=== PATIENT | male | born 1940 | race African-American/Black ===

== ENCOUNTER 2023-12-05 22:01 | Inpatient (IN) | payer MEDICARE ==
[2023-12-05 22:53] LABS: #Basophils 0.04 10x3/uL (0.0-0.2); %Basophils 0.7 % (0.0-1.0); %Eosinophils 1.2 % (0.0-10.0); %Lymphocytes 38.6 % (21.0-51.0); %Monocytes 8.5 % (0.0-10.0); %Neutrophils 50.8 % (42.0-75.0); Hematocrit 46.1 % (42.0-52.0); Hemoglobin 14.6 g/dL (14.0-18.0); Mean Corpuscular HGB CONC 31.7 g/dL (32.0-36.0); Mean Corpuscular Hemoglobin 31.6 pg (27.0-31.0); Mean Corpuscular Volume 99.8 fL (78.0-98.0); Mean Platelet Volume 9.2 fL (7.4-10.4); Platelet Count 221 10x3/uL (130-400); Red Blood Cell (RBC) Count 4.62 mill/uL (4.70-6.10)
[2023-12-05 23:21] LABS: INR-International Normal Ratio 1.2; PTT 33.9 sec (22.9-36.1); Prothrombin Time 14.9 sec (12.0-14.7)
[2023-12-05 23:23] LABS: ALT (SGPT) 11 U/L (8-55); AST (SGOT) 21 U/L (5-34); Albumin 3.7 g/dL (3.4-4.8); Alkaline Phosphatase 63 U/L (40-110); Anion Gap 15 mmol/L (10-20); BUN (Urea Nitrogen) 21 mg/dL (8.4-25.7); Bilirubin, Total 1.2 mg/dL (0.2-1.2); Calc. Creatinine Clearance 0 mL/min (70-130); Calcium 9.3 mg/dL (7.8-10.44); Carbon Dioxide 22 mmol/L (23-31); Chloride 106 mmol/L (98-107); Estimated GFR 63; Globulin 3.7 g/dL (2.4-3.5); Glucose 111 mg/dL (83-110); Protein, Total 7.4 g/dL (5.8-8.1); Sodium 139 mmol/L (136-145)
[2023-12-05] MEDS ORDERED: Aspirin Chewable 81 MG TAB ONE (23:43)
[2023-12-06 02:11] VITALS: BMI 26.0
[2023-12-06] MEDS ORDERED: Ondansetron ODT 4 MG TAB SL PRN (02:15)
[2023-12-06] MEDS ORDERED: Ondansetron PF 4 MG/2 ML Vial IVP PRN (02:15)
[2023-12-06] MEDS ORDERED: Acetaminophen 325 MG TAB PO PRN (02:15)
[2023-12-06] MEDS ORDERED: Labetalol HCl 100 MG/20 ML VIAL SLOW IVP PRN (02:28)
[2023-12-06] MEDS ORDERED: hydrALAZINE 20 MG/ML VIAL SLOW IVP PRN (02:28)
[2023-12-06 04:44] LABS: #Basophils 0.04 10x3/uL (0.0-0.2); %Basophils 0.7 % (0.0-1.0); %Eosinophils 1.3 % (0.0-10.0); %Lymphocytes 28.4 % (21.0-51.0); %Monocytes 9.6 % (0.0-10.0); %Neutrophils 59.8 % (42.0-75.0); Hematocrit 41.9 % (42.0-52.0); Hemoglobin 13.9 g/dL (14.0-18.0); Mean Corpuscular HGB CONC 33.2 g/dL (32.0-36.0); Mean Corpuscular Hemoglobin 31.7 pg (27.0-31.0); Mean Corpuscular Volume 95.7 fL (78.0-98.0); Mean Platelet Volume 9.9 fL (7.4-10.4); Platelet Count 219 10x3/uL (130-400); RBC Distribution Width 12.8 % (11.5-14.5); Red Blood Cell (RBC) Count 4.38 mill/uL (4.70-6.10)
[2023-12-06 05:12] LABS: Hemoglobin A1c 5.4 % (4.0-6.0)
[2023-12-06 05:39] LABS: Anion Gap 9 mmol/L (10-20); BUN (Urea Nitrogen) 21 mg/dL (8.4-25.7); Calc. Creatinine Clearance 60 mL/min (70-130); Calcium 9.1 mg/dL (7.8-10.44); Carbon Dioxide 24 mmol/L (23-31); Cardiac Risk 2.7 (Less than 4.5); Chloride 108 mmol/L (98-107); Cholesterol 118 mg/dl (< 200 Desired); Estimated GFR 72; Glucose 127 mg/dL (83-110); HDL Cholesterol 44 mg/dL (>60 Neg Risk); LDL Cholesterol, Calculated 67 mg/dL; Potassium 4.3 mmol/L (3.5-5.1); Sodium 137 mmol/L (136-145); Triglycerides 35 mg/dL (Less than 150)
[2023-12-06] MEDS: Levothyroxine Sodium 75 MCG TAB PO SCH (06:31)
[2023-12-06 08:50] LABS: Bacteria/HPF None Seen HPF (None Seen); Bilirubin Negative (Negative); Blood, Urine Negative (Negative); CAUTI Indications for Culture Alt mental st,lethar; Clarity Clear (Clear); Glucose, Urine (Dipstick) Normal (Negative); Ketone, Urine Negative (Negative); Leukocyte Negative Leu/uL (Negative); Nitrite Negative (Negative); Protein, Urine (Dipstick) 10 mg/dL (Neg-Trace); RBC/HPF 0-3 HPF (0-3); Specific Gravity, Urine 1.018 (1.002-1.036); Squamous Epithelial None Seen HPF (0-3); Urobilinogen Normal mg/dL (Less than 2); WBC/HPF 0-3 HPF (0-3); pH, Urine 5.5 (5.0-9.0)
[2023-12-06 08:57] LABS: Urine Culture Reflex No No
[2023-12-06] MEDS ORDERED: Aspirin 81 mg Enteric Coated Tablet PO SCH (09:00)
[2023-12-06] MEDS: Levothyroxine Sodium 75 MCG TAB ONE (09:28)
[2023-12-06] MEDS: Aspirin 325 MG TAB PO SCH (09:32)
[2023-12-06] MEDS: Atorvastatin Calcium 10 MG TAB PO SCH (09:32)
[2023-12-06] MEDS: Sacubitril 24MG/Valsartan 26 MG TAB PO SCH (09:33)
[2023-12-07 06:27] LABS: #Basophils 0.04 10x3/uL (0.0-0.2); %Basophils 0.7 % (0.0-1.0); %Eosinophils 4.2 % (0.0-10.0); %Monocytes 11.2 % (0.0-10.0); %Neutrophils 40.7 % (42.0-75.0); Hematocrit 43.1 % (42.0-52.0); Hemoglobin 14.2 g/dL (14.0-18.0); Mean Corpuscular HGB CONC 32.9 g/dL (32.0-36.0); Mean Corpuscular Hemoglobin 31.9 pg (27.0-31.0); Mean Corpuscular Volume 96.9 fL (78.0-98.0); Mean Platelet Volume 9.8 fL (7.4-10.4); Platelet Count 195 10x3/uL (130-400); Red Blood Cell (RBC) Count 4.45 mill/uL (4.70-6.10)
[2023-12-07 06:40] LABS: Anion Gap 14 mmol/L (10-20); BUN (Urea Nitrogen) 18 mg/dL (8.4-25.7); Calc. Creatinine Clearance 63 mL/min (70-130); Calcium 8.8 mg/dL (7.8-10.44); Carbon Dioxide 21 mmol/L (23-31); Chloride 106 mmol/L (98-107); Estimated GFR 77; Glucose 83 mg/dL (83-110); Potassium 4.4 mmol/L (3.5-5.1); Sodium 137 mmol/L (136-145)
[2023-12-07] MEDS ORDERED: Acetaminophen 325 MG TAB PO PRN (09:08)
[2023-12-07 13:21] VITALS: BMI 26.0
[2023-12-07] MEDS: Carvedilol 3.125 MG TAB PO SCH (18:08)
[2023-12-07] MEDS: Atorvastatin Calcium 40 MG TAB PO SCH (20:30)
[2023-12-07] MEDS: Enoxaparin 40 MG (0.4 mL) SYRINGE SC SCH (20:31)
[2023-12-08 04:25] LABS: #Basophils 0.04 10x3/uL (0.0-0.2); %Basophils 0.7 % (0.0-1.0); %Eosinophils 3.1 % (0.0-10.0); %Lymphocytes 40.3 % (21.0-51.0); %Monocytes 10.8 % (0.0-10.0); %Neutrophils 44.9 % (42.0-75.0); Hematocrit 41.7 % (42.0-52.0); Hemoglobin 13.5 g/dL (14.0-18.0); Mean Corpuscular HGB CONC 32.4 g/dL (32.0-36.0); Mean Corpuscular Hemoglobin 32.1 pg (27.0-31.0); Mean Platelet Volume 9.1 fL (7.4-10.4); Platelet Count 195 10x3/uL (130-400); RBC Distribution Width 12.9 % (11.5-14.5); Red Blood Cell (RBC) Count 4.21 mill/uL (4.70-6.10)
[2023-12-08 04:44] LABS: Anion Gap 13 mmol/L (10-20); BUN (Urea Nitrogen) 18 mg/dL (8.4-25.7); Calc. Creatinine Clearance 51 mL/min (70-130); Calcium 9.1 mg/dL (7.8-10.44); Carbon Dioxide 24 mmol/L (23-31); Chloride 104 mmol/L (98-107); Estimated GFR 60; Glucose 79 mg/dL (83-110); Potassium 4.6 mmol/L (3.5-5.1); Sodium 136 mmol/L (136-145)
[2023-12-08] MEDS: Clopidogrel Bisulfate 75 MG TAB PO SCH (09:08)
[2023-12-08] MEDS: Aspirin 81 mg Enteric Coated Tablet PO SCH (09:08)
[2023-12-09 05:55] LABS: #Basophils 0.04 10x3/uL (0.0-0.2); %Basophils 0.7 % (0.0-1.0); %Eosinophils 3.4 % (0.0-10.0); %Lymphocytes 39.8 % (21.0-51.0); %Monocytes 11.8 % (0.0-10.0); %Neutrophils 44.1 % (42.0-75.0); Hematocrit 39.3 % (42.0-52.0); Mean Corpuscular HGB CONC 33.1 g/dL (32.0-36.0); Mean Corpuscular Hemoglobin 32.1 pg (27.0-31.0); Mean Platelet Volume 9.8 fL (7.4-10.4); Platelet Count 210 10x3/uL (130-400); RBC Distribution Width 12.9 % (11.5-14.5); Red Blood Cell (RBC) Count 4.05 mill/uL (4.70-6.10)
[2023-12-09 06:15] LABS: Anion Gap 15 mmol/L (10-20); BUN (Urea Nitrogen) 24 mg/dL (8.4-25.7); Calc. Creatinine Clearance 56 mL/min (70-130); Carbon Dioxide 23 mmol/L (23-31); Chloride 105 mmol/L (98-107); Potassium 4.3 mmol/L (3.5-5.1); Sodium 139 mmol/L (136-145)
[2023-12-09 06:16] LABS: ALT (SGPT) 10 U/L (8-55); AST (SGOT) 18 U/L (5-34); Albumin 3.1 g/dL (3.4-4.8); Alkaline Phosphatase 50 U/L (40-110); Bilirubin, Total 1.1 mg/dL (0.2-1.2); Calcium 8.9 mg/dL (7.8-10.44); Estimated GFR 67; Globulin 3.3 g/dL (2.4-3.5); Glucose 88 mg/dL (83-110); Protein, Total 6.4 g/dL (5.8-8.1)
[2023-12-09] MEDS ORDERED: Ketamine In 0.9 % NaCl 50 MG/5 ML SYRINGE ONE (13:00)
[2023-12-09] MEDS ORDERED: Midazolam HCl 2 mg/2 ml Vial ONE (13:07)
[2023-12-09] MEDS ORDERED: HYDROmorphone 2 MG/ML VIAL SLOW IVP PRN (13:41)
[2023-12-09] MEDS ORDERED: Ondansetron HCl/PF 4 MG/2 ML Vial IVP PRN (13:41)
[2023-12-09] MEDS ORDERED: Promethazine HCl 25 MG/ML VIAL IM PRN (13:41)
[2023-12-10 04:53] LABS: #Basophils 0.03 10x3/uL (0.0-0.2); %Basophils 0.5 % (0.0-1.0); %Eosinophils 2.7 % (0.0-10.0); %Lymphocytes 35.7 % (21.0-51.0); %Monocytes 9.3 % (0.0-10.0); %Neutrophils 51.6 % (42.0-75.0); Hematocrit 40.6 % (42.0-52.0); Hemoglobin 13.6 g/dL (14.0-18.0); Mean Corpuscular HGB CONC 33.5 g/dL (32.0-36.0); Mean Corpuscular Hemoglobin 31.8 pg (27.0-31.0); Mean Corpuscular Volume 94.9 fL (78.0-98.0); Mean Platelet Volume 9.3 fL (7.4-10.4); Platelet Count 202 10x3/uL (130-400); RBC Distribution Width 12.7 % (11.5-14.5); Red Blood Cell (RBC) Count 4.28 mill/uL (4.70-6.10)
[2023-12-10 05:38] LABS: ALT (SGPT) 9 U/L (8-55); AST (SGOT) 18 U/L (5-34); Albumin 3.1 g/dL (3.4-4.8); Alkaline Phosphatase 51 U/L (40-110); Anion Gap 15 mmol/L (10-20); BUN (Urea Nitrogen) 25 mg/dL (8.4-25.7); Calc. Creatinine Clearance 62 mL/min (70-130); Calcium 9.1 mg/dL (7.8-10.44); Carbon Dioxide 21 mmol/L (23-31); Chloride 106 mmol/L (98-107); Estimated GFR 76; Globulin 3.3 g/dL (2.4-3.5); Glucose 85 mg/dL (83-110); Potassium 4.4 mmol/L (3.5-5.1); Protein, Total 6.4 g/dL (5.8-8.1); Sodium 138 mmol/L (136-145)
[2023-12-10 15:58] VITALS: BP 99/63; TEMP 97.6
== END 2023-12-10 17:29 | disposition home or self-care (01) | DRG 65 ==
LOC: ERS 22:01 → 2SE 12-06 00:15 → OBSVTOIN 12-06 11:06
PROVIDERS: ADMIT Internal Medicine; ATTEND Family Medicine
PROC: 4A00X4Z Measurement of Central Nervous Electrical Activity, External Approach (ICD-10-PCS; principal; 2023-12-06)
PROC: B245ZZ4 Ultrasonography of Left Heart, Transesophageal (ICD-10-PCS; 2023-12-09)
DX: I63.9 Cerebral infarction, unspecified (principal); I50.42 Chronic combined systolic (congestive) and diastolic (congestive) heart failure; E03.9 Hypothyroidism, unspecified; E78.5 Hyperlipidemia, unspecified; I50.9 Heart failure, unspecified; R53.81 Other malaise; F17.200 Nicotine dependence, unspecified, uncomplicated; R00.1 Bradycardia, unspecified; Z79.82 Long term (current) use of aspirin; Z79.890 Hormone replacement therapy; Z85.038 Personal history of other malignant neoplasm of large intestine
CPT/HCPCS: 36415; 36416; 70450; 70551; 71045; 80048; 80053; 80061; 81001; 83036; 84443; 85025; 85610; 85730; 93005; 93306; 93312; 93880; 95700; 95711; 95819; 97139; J1650; J2250; J3490

== ENCOUNTER 2024-03-05 08:00 | Inpatient (IN) | payer MEDICARE ==
[2024-03-05 10:37] LABS: #Basophils 0.04 10x3/uL (0.0-0.2); %Basophils 0.8 % (0.0-1.0); %Eosinophils 4.1 % (0.0-10.0); %Lymphocytes 34.1 % (21.0-51.0); %Monocytes 11.4 % (0.0-10.0); %Neutrophils 49.4 % (42.0-75.0); Hematocrit 38.2 % (42.0-52.0); Hemoglobin 12.1 g/dL (14.0-18.0); Mean Corpuscular HGB CONC 31.7 g/dL (32.0-36.0); Mean Corpuscular Hemoglobin 32.9 pg (27.0-31.0); Mean Corpuscular Volume 103.8 fL (78.0-98.0); Platelet Count 242 10x3/uL (130-400); RBC Distribution Width 14.1 % (11.5-14.5); Red Blood Cell (RBC) Count 3.68 mill/uL (4.70-6.10)
[2024-03-05 10:58] LABS: ALT (SGPT) 17 U/L (8-55); AST (SGOT) 24 U/L (5-34); Albumin 3.4 g/dL (3.4-4.8); Alkaline Phosphatase 75 U/L (40-110); Anion Gap 12 mmol/L (10-20); BUN (Urea Nitrogen) 20 mg/dL (8.4-25.7); Bilirubin, Direct 0.4 mg/dL (0.1-0.3); Bilirubin, Total 1.1 mg/dL (0.2-1.2); Calc. Creatinine Clearance 0 mL/min (70-130); Calcium 9.2 mg/dL (7.8-10.44); Carbon Dioxide 24 mmol/L (23-31); Chloride 108 mmol/L (98-107); Estimated GFR 66; Glucose 101 mg/dL (83-110); Potassium 4.2 mmol/L (3.5-5.1); Protein, Total 6.5 g/dL (5.8-8.1); Sodium 140 mmol/L (136-145)
[2024-03-06] MEDS ORDERED: PHENYLEPHRINE-NS 100 MCG/ML 10 ML SYRINGE ONE (06:33)
[2024-03-06] MEDS ORDERED: EPINEPHrine 1 MG/ML VIAL ONE (06:33)
[2024-03-06] MEDS ORDERED: Albumin 5% 500 ML ONE (06:34)
[2024-03-06] MEDS ORDERED: Bupivacaine PF 0.5% 30 ML VIAL ONE (06:34)
[2024-03-06] MEDS ORDERED: Heparin 10,000 UNITS/1 ML VIAL 30,000 UNITS in Sodium Chloride 0.9% 1,000 ML FS SCH (06:45)
[2024-03-06] MEDS ORDERED: Midazolam HCl 2 mg/2 ml Vial ONE ×2 (06:49→11:26)
[2024-03-06] MEDS ORDERED: Lidocaine 1% MPF 2 ML VIAL ONE (06:49)
[2024-03-06] MEDS ORDERED: Midazolam HCl 5 mg/ml Vial ONE (06:58)
[2024-03-06] MEDS ORDERED: Vecuronium 10 MG VIAL ONE (06:58)
[2024-03-06] MEDS ORDERED: Fentanyl 250 MCG/5 ML VIAL ONE (07:06)
[2024-03-06] MEDS ORDERED: PROPOFOL 20 ML ONE ×3 (07:06→10:46)
[2024-03-06] MEDS ORDERED: Lidocaine 2% PF 5 ML VIAL ONE (07:06)
[2024-03-06] MEDS ORDERED: NOREPINEPHRINE 8 MG/250 ML-D5W 250 ML ONE (07:12)
[2024-03-06] MEDS ORDERED: Sodium Chloride 0.9% 100 ML ONE (07:26)
[2024-03-06] MEDS ORDERED: CEFAZOLIN 2 GM VIAL ONE (07:26)
[2024-03-06] MEDS ORDERED: Heparin 5,000 UNITS/ML VIAL ONE (07:40)
[2024-03-06] MEDS ORDERED: Heparin 30,000 units/30 ml VIAL ONE (07:40)
[2024-03-06] MEDS ORDERED: Thrombin 5000 UNITS/5 ML VIAL ONE (07:40)
[2024-03-06] MEDS ORDERED: Calcium Chloride 1 GM/10 ML Abboject SYRINGE ONE (07:40)
[2024-03-06] MEDS ORDERED: Mannitol 12.5 GM/50 ML ONE (07:40)
[2024-03-06] MEDS ORDERED: Sodium Bicarb 50 mEq/50 ML VIAL ONE (07:40)
[2024-03-06] MEDS ORDERED: Vancomycin 1 GM VIAL ONE (07:40)
[2024-03-06] MEDS ORDERED: Magnesium 5 GM/10 ML VIAL ONE (07:40)
[2024-03-06] MEDS ORDERED: Protamine Sulfate 250 MG/25 ML VIAL ONE (07:40)
[2024-03-06] MEDS ORDERED: Lidocaine 2% PF 100 mg/5 ml Syringe ONE (07:40)
[2024-03-06] MEDS ORDERED: Cardioplegic Soln 1,000 ML BAG ONE (07:40)
[2024-03-06] MEDS ORDERED: Rocuronium Bromide 10 MG/ML (10ML VIAL) ONE (07:40)
[2024-03-06] MEDS ORDERED: Papaverine 60 MG/2 ML VIAL ONE (07:40)
[2024-03-06] MEDS ORDERED: Potassium Chloride 60 mEq (30 mL) VIAL ONE (07:40)
[2024-03-06] MEDS ORDERED: Aminocaproic Acid 5 GM/20 ML VIAL ONE (07:40)
[2024-03-06] MEDS ORDERED: Esmolol 100 MG/10 ML VIAL ONE (07:40)
[2024-03-06] MEDS ORDERED: Sodium Chloride 0.9% 300 ML ONE (10:18)
[2024-03-06] MEDS ORDERED: Ondansetron PF 4 MG/2 ML Vial IVP PRN (11:49)
[2024-03-06] MEDS ORDERED: Post-Op Insulin Drip Protocol IVPB SCH (11:49)
[2024-03-06] MEDS ORDERED: Bisacodyl 10 MG SUPP PR PRN (11:49)
[2024-03-06] MEDS ORDERED: Mag-Al 1200 mg/1200 mg/30 ML UDCUP PO PRN (11:49)
[2024-03-06] MEDS ORDERED: Morphine 2 MG/ML VIAL SLOW IVP PRN (11:49)
[2024-03-06] MEDS ORDERED: Guaifenesin DM 100-10/5 ML UDCUP PO PRN (11:49)
[2024-03-06] MEDS ORDERED: hydrALAZINE 20 MG/ML VIAL SLOW IVP PRN (11:49)
[2024-03-06] MEDS ORDERED: Promethazine HCl 25 MG/ML VIAL IM PRN (11:49)
[2024-03-06] MEDS ORDERED: Albumin 5% 12.5 GM (250 mL) BOT IVPB PRN (11:49)
[2024-03-06] MEDS ORDERED: NOREPINEPHRINE 8 MG/250 ML-D5W 250 ML IVPB PRN (11:49)
[2024-03-06] MEDS ORDERED: Nitroglycerin 50 MG/250 ML BOT 250 ML IVPB PRN (11:49)
[2024-03-06] MEDS ORDERED: niCARdipine 25 MG in Sodium Chloride 0.9% 250 ML 250 ML IVPB PRN (11:49)
[2024-03-06] MEDS: Sodium Chloride 0.9% 1,000 ML IV SCH (12:15)
[2024-03-06 12:17] LABS: Actual Bicarbonate (HCO3a) 19.5 mEq/L (22-28); Base Excess (BEa) -5.3 mEq/L (-2.0 to +3.0); CO2 Tension 35.3 mmHg (35.0-45.0); Calcium, Ionized (arterial) 1.16 mmol/L (1.12-1.30); Carboxyhemoglobin (COHb) 0.4 gm% (0.0-3.0); Hematocrit-ABG 33 % (42.0-52.0); Hemoglobin (Hb) 11.3 g/dL (14.0-18.0); O2 Tension (PaO2), arterial 130.2 mmHg (> 60.0); Potassium - ABG Lab 4.28 mmol/L (3.70-5.30)
[2024-03-06 12:19] LABS: ALV-art Gradient 182.175 mmHg (0-20); Puncture Site ALINE
[2024-03-06] MEDS: Albumin 5% 12.5 GM (250 mL) BOT IVPB PRN (12:29)
[2024-03-06 12:30] LABS: #Basophils 0.03 10x3/uL (0.0-0.2); %Basophils 0.2 % (0.0-1.0); %Eosinophils 0.6 % (0.0-10.0); %Lymphocytes 10.5 % (21.0-51.0); %Neutrophils 82.9 % (42.0-75.0); Hematocrit 31.4 % (42.0-52.0); Hemoglobin 10.2 g/dL (14.0-18.0); Mean Corpuscular HGB CONC 32.5 g/dL (32.0-36.0); Mean Corpuscular Volume 101.6 fL (78.0-98.0); Mean Platelet Volume 9.3 fL (7.4-10.4); Platelet Count 180 10x3/uL (130-400); Red Blood Cell (RBC) Count 3.09 mill/uL (4.70-6.10)
[2024-03-06] MEDS ORDERED: Dextrose 50% Abboject 50 ML SYRINGE SLOW IVP PRN (12:30)
[2024-03-06] MEDS ORDERED: Glucagon 1 MG/ML KIT SC PRN (12:30)
[2024-03-06] MEDS ORDERED: Dextrose 5% in Water 1,000 ML IV PRN (12:30)
[2024-03-06] MEDS ORDERED: Insulin Reg, Human 100 UNITS in Sodium Chloride 0.9% 100 ML IVPB SCH (12:30)
[2024-03-06] MEDS: Magnesium 2 GM/50 ML(in water) 2 GM in Premix 1 BAG IVPB SCH (12:37)
[2024-03-06 12:48] LABS: Anion Gap 15 mmol/L (10-20); BUN (Urea Nitrogen) 15 mg/dL (8.4-25.7); Calc. Creatinine Clearance 70 mL/min (70-130); Calcium 8.5 mg/dL (7.8-10.44); Carbon Dioxide 19 mmol/L (23-31); Chloride 110 mmol/L (98-107); Estimated GFR 84; Glucose 158 mg/dL (83-110); Potassium 4.3 mmol/L (3.5-5.1); Sodium 140 mmol/L (136-145)
[2024-03-06 12:49] LABS: INR-International Normal Ratio 1.5; Prothrombin Time 18.4 sec (12.0-14.7)
[2024-03-06 12:50] LABS: PTT 40.6 sec (22.9-36.1)
[2024-03-06] MEDS: Insulin Regular, Human 100 UNIT/ML 10 ML VIAL SC PRN (13:19)
[2024-03-06] MEDS: Ipratropium/Albuterol 3 ML NEB NEB SCH (14:48)
[2024-03-06] MEDS: CEFAZOLIN 2 GM in Sodium Chloride 0.9% 100 ML IVPB SCH (16:48)
[2024-03-06] MEDS: INSULIN REGULAR IN 0.9 % NACL 100 UNITS in Premix 1 BAG IVPB SCH (17:39)
[2024-03-06 18:27] LABS: Actual Bicarbonate (HCO3a) 16.3 mEq/L (22-28); Base Excess (BEa) -8.4 mEq/L (-2.0 to +3.0); CO2 Tension 31.2 mmHg (35.0-45.0); Calcium, Ionized (arterial) 1.07 mmol/L (1.12-1.30); Carboxyhemoglobin (COHb) 0.2 gm% (0.0-3.0); Hematocrit-ABG 30 % (42.0-52.0); Hemoglobin (Hb) 10.3 g/dL (14.0-18.0); O2 Tension (PaO2), arterial 91.9 mmHg (> 60.0); Potassium - ABG Lab 3.48 mmol/L (3.70-5.30); Puncture Site LINE; pH, Arterial 7.337 (7.35-7.45)
[2024-03-06 18:57] LABS: Hematocrit 30.5 % (42.0-52.0)
[2024-03-06 19:05] LABS: Potassium 3.8 mmol/L (3.5-5.1)
[2024-03-06] MEDS: Potassium Chloride 20 MEQ (100 mL) BAG IVPB PRN (19:42)
[2024-03-06] MEDS: fentaNYL 50 mcg/mL 1 mL Vial SLOW IVP PRN (21:09)
[2024-03-06] MEDS: Famotidine/PF 20 mg/2ml Vial SLOW IVP SCH (21:14)
[2024-03-06] MEDS: Atorvastatin Calcium 20 MG TAB PO SCH (21:14)
[2024-03-06] MEDS: Milrinone Lactate/D5W 20 MG in Premix 1 BAG IV SCH (22:43)
[2024-03-07 04:40] LABS: #Basophils Less than 0.03 10x3/uL (0.0-0.2); #Eosinphils Less than 0.03 10x3/uL (0.0-0.7); %Basophils 0.1 % (0.0-1.0); %Lymphocytes 4.9 % (21.0-51.0); %Monocytes 5.1 % (0.0-10.0); %Neutrophils 89.5 % (42.0-75.0); Hematocrit 28.2 % (42.0-52.0); Hemoglobin 9.4 g/dL (14.0-18.0); Mean Corpuscular HGB CONC 33.3 g/dL (32.0-36.0); Mean Corpuscular Hemoglobin 32.6 pg (27.0-31.0); Mean Corpuscular Volume 97.9 fL (78.0-98.0); Mean Platelet Volume 9.7 fL (7.4-10.4); Platelet Count 185 10x3/uL (130-400); RBC Distribution Width 14.2 % (11.5-14.5); Red Blood Cell (RBC) Count 2.88 mill/uL (4.70-6.10)
[2024-03-07 05:02] LABS: Anion Gap 11 mmol/L (10-20); BUN (Urea Nitrogen) 19 mg/dL (8.4-25.7); Calc. Creatinine Clearance 60 mL/min (70-130); Calcium 8.4 mg/dL (7.8-10.44); Carbon Dioxide 18 mmol/L (23-31); Chloride 116 mmol/L (98-107); Estimated GFR 66; Glucose 140 mg/dL (83-110); Potassium 4.2 mmol/L (3.5-5.1); Sodium 141 mmol/L (136-145)
[2024-03-07] MEDS: Levothyroxine Sodium 75 MCG TAB PO SCH (05:18)
[2024-03-07] MEDS: fentaNYL 50 mcg/mL 1 mL Vial SLOW IVP PRN (05:23)
[2024-03-07] MEDS: Magnesium 2 GM/50 ML(in water) 2 GM in Premix 1 BAG IVPB SCH (08:30)
[2024-03-07] MEDS: Aspirin Chewable 81 MG TAB PO SCH (08:31)
[2024-03-07] MEDS ORDERED: Insulin Glargine 30 UNITS/0.3 ML VIAL SC PRN (12:17)
[2024-03-07] MEDS: traMADol HCl 50 MG TAB PO PRN (15:57)
[2024-03-08 05:23] LABS: #Basophils Less than 0.03 10x3/uL (0.0-0.2); #Eosinphils Less than 0.03 10x3/uL (0.0-0.7); %Basophils 0.2 % (0.0-1.0); %Lymphocytes 11.9 % (21.0-51.0); %Monocytes 8.6 % (0.0-10.0); %Neutrophils 78.6 % (42.0-75.0); Hematocrit 30.6 % (42.0-52.0); Mean Corpuscular HGB CONC 32.7 g/dL (32.0-36.0); Mean Corpuscular Hemoglobin 32.7 pg (27.0-31.0); Mean Platelet Volume 10.2 fL (7.4-10.4); Platelet Count 168 10x3/uL (130-400); RBC Distribution Width 14.5 % (11.5-14.5); Red Blood Cell (RBC) Count 3.06 mill/uL (4.70-6.10)
[2024-03-08 05:53] LABS: Phosphorus 2.1 mg/dL (2.3-4.7)
[2024-03-08 05:54] LABS: Anion Gap 13 mmol/L (10-20); BUN (Urea Nitrogen) 28 mg/dL (8.4-25.7); Calc. Creatinine Clearance 49 mL/min (70-130); Calcium 8.5 mg/dL (7.8-10.44); Carbon Dioxide 20 mmol/L (23-31); Chloride 112 mmol/L (98-107); Estimated GFR 52; Glucose 132 mg/dL (83-110); Magnesium 2.9 mg/dL (1.6-2.6); Potassium 4.5 mmol/L (3.5-5.1); Sodium 140 mmol/L (136-145)
[2024-03-08] MEDS: traMADol HCl 50 MG TAB PO PRN (10:12)
[2024-03-09 06:26] LABS: Anion Gap 11 mmol/L (10-20); BUN (Urea Nitrogen) 50 mg/dL (8.4-25.7); Calc. Creatinine Clearance 42 mL/min (70-130); Calcium 8.6 mg/dL (7.8-10.44); Carbon Dioxide 20 mmol/L (23-31); Chloride 110 mmol/L (98-107); Estimated GFR 44; Glucose 162 mg/dL (83-110); Magnesium 2.9 mg/dL (1.6-2.6); Phosphorus 2.1 mg/dL (2.3-4.7); Potassium 4.8 mmol/L (3.5-5.1); Sodium 136 mmol/L (136-145)
[2024-03-09 06:30] LABS: #Basophils Less than 0.03 10x3/uL (0.0-0.2); #Eosinphils Less than 0.03 10x3/uL (0.0-0.7); %Basophils 0.2 % (0.0-1.0); %Lymphocytes 9.1 % (21.0-51.0); %Monocytes 9.1 % (0.0-10.0); %Neutrophils 80.9 % (42.0-75.0); Hemoglobin 9.9 g/dL (14.0-18.0); Mean Corpuscular Hemoglobin 32.8 pg (27.0-31.0); Mean Corpuscular Volume 99.3 fL (78.0-98.0); Mean Platelet Volume 10.5 fL (7.4-10.4); Platelet Count 163 10x3/uL (130-400); RBC Distribution Width 14.3 % (11.5-14.5); Red Blood Cell (RBC) Count 3.02 mill/uL (4.70-6.10)
[2024-03-09] MEDS: Furosemide 20 MG TAB PO SCH (10:38)
[2024-03-09] MEDS: Bisacodyl 5 MG TAB PO PRN (16:19)
[2024-03-09] MEDS: Senokot S 8.6-50 MG TAB PO SCH (21:40)
[2024-03-09] MEDS: Metoprolol Tartrate 25 MG TAB PO SCH (21:41)
[2024-03-10 04:55] LABS: #Basophils Less than 0.03 10x3/uL (0.0-0.2); #Eosinphils Less than 0.03 10x3/uL (0.0-0.7); %Basophils 0.2 % (0.0-1.0); %Eosinophils 0.1 % (0.0-10.0); %Lymphocytes 15.7 % (21.0-51.0); %Monocytes 11.5 % (0.0-10.0); %Neutrophils 72.2 % (42.0-75.0); Hematocrit 30.5 % (42.0-52.0); Hemoglobin 9.9 g/dL (14.0-18.0); Mean Corpuscular HGB CONC 32.5 g/dL (32.0-36.0); Mean Corpuscular Hemoglobin 32.6 pg (27.0-31.0); Mean Corpuscular Volume 100.3 fL (78.0-98.0); Mean Platelet Volume 10.5 fL (7.4-10.4); Platelet Count 177 10x3/uL (130-400); Red Blood Cell (RBC) Count 3.04 mill/uL (4.70-6.10)
[2024-03-10 05:41] LABS: Anion Gap 13 mmol/L (10-20); BUN (Urea Nitrogen) 60 mg/dL (8.4-25.7); Calc. Creatinine Clearance 46 mL/min (70-130); Calcium 8.8 mg/dL (7.8-10.44); Carbon Dioxide 20 mmol/L (23-31); Chloride 107 mmol/L (98-107); Estimated GFR 49; Glucose 151 mg/dL (83-110); Magnesium 2.8 mg/dL (1.6-2.6); Phosphorus 2.9 mg/dL (2.3-4.7); Potassium 4.9 mmol/L (3.5-5.1); Sodium 135 mmol/L (136-145)
[2024-03-10] MEDS: Clopidogrel Bisulfate 75 MG TAB PO SCH (09:36)
[2024-03-10] MEDS: Sacubitril 24MG/Valsartan 26 MG TAB PO SCH (09:37)
[2024-03-10] MEDS: Loratadine 10 MG TAB PO SCH (14:25)
[2024-03-10] MEDS: Acetaminophen 325 MG TAB PO PRN (14:25)
[2024-03-10] MEDS: Polyethylene Glycol 3350 17 GM Packet PO PRN (23:13)
[2024-03-11 05:12] LABS: #Basophils Less than 0.03 10x3/uL (0.0-0.2); #Eosinphils Less than 0.03 10x3/uL (0.0-0.7); %Basophils 0.1 % (0.0-1.0); %Eosinophils 0.1 % (0.0-10.0); %Lymphocytes 12.9 % (21.0-51.0); %Monocytes 13.2 % (0.0-10.0); Hematocrit 29.8 % (42.0-52.0); Hemoglobin 9.9 g/dL (14.0-18.0); Mean Corpuscular HGB CONC 33.2 g/dL (32.0-36.0); Mean Corpuscular Hemoglobin 32.8 pg (27.0-31.0); Mean Corpuscular Volume 98.7 fL (78.0-98.0); Mean Platelet Volume 10.3 fL (7.4-10.4); Platelet Count 181 10x3/uL (130-400); RBC Distribution Width 14.1 % (11.5-14.5); Red Blood Cell (RBC) Count 3.02 mill/uL (4.70-6.10)
[2024-03-11 05:29] LABS: Anion Gap 16 mmol/L (10-20); BUN (Urea Nitrogen) 68 mg/dL (8.4-25.7); Calc. Creatinine Clearance 36 mL/min (70-130); Calcium 8.6 mg/dL (7.8-10.44); Carbon Dioxide 18 mmol/L (23-31); Chloride 105 mmol/L (98-107); Estimated GFR 37; Glucose 143 mg/dL (83-110); Potassium 4.9 mmol/L (3.5-5.1); Sodium 134 mmol/L (136-145)
[2024-03-11 09:02] LABS: Magnesium 2.7 mg/dL (1.6-2.6); Phosphorus 3.4 mg/dL (2.3-4.7)
[2024-03-11] MEDS: Amiodarone 150 MG, Admixture Fee 1 EACH in Dextrose 5% in Water 100 ML IVPB SCH (10:37)
[2024-03-11] MEDS: Loratadine 10 MG TAB PO SCH (10:55)
[2024-03-11] MEDS: Amiodarone 450 MG in Dextrose 5% in Water 250 ML IVPB SCH (11:02)
[2024-03-11] MEDS: Furosemide 20 MG TAB PO SCH (11:07)
[2024-03-11 17:05] VITALS: BMI 29.9
[2024-03-12 04:39] LABS: #Basophils Less than 0.03 10x3/uL (0.0-0.2); #Eosinphils Less than 0.03 10x3/uL (0.0-0.7); %Basophils 0.2 % (0.0-1.0); %Eosinophils 0.1 % (0.0-10.0); %Monocytes 13.2 % (0.0-10.0); %Neutrophils 70.7 % (42.0-75.0); Hematocrit 31.7 % (42.0-52.0); Hemoglobin 10.4 g/dL (14.0-18.0); Mean Corpuscular HGB CONC 32.8 g/dL (32.0-36.0); Mean Corpuscular Hemoglobin 32.1 pg (27.0-31.0); Mean Corpuscular Volume 97.8 fL (78.0-98.0); Mean Platelet Volume 10.1 fL (7.4-10.4); Platelet Count 228 10x3/uL (130-400); RBC Distribution Width 14.1 % (11.5-14.5); Red Blood Cell (RBC) Count 3.24 mill/uL (4.70-6.10)
[2024-03-12 05:11] LABS: Anion Gap 16 mmol/L (10-20); BUN (Urea Nitrogen) 69 mg/dL (8.4-25.7); Calc. Creatinine Clearance 39 mL/min (70-130); Calcium 8.7 mg/dL (7.8-10.44); Carbon Dioxide 17 mmol/L (23-31); Chloride 103 mmol/L (98-107); Estimated GFR 42; Glucose 163 mg/dL (83-110); Magnesium 2.8 mg/dL (1.6-2.6); Phosphorus 3.4 mg/dL (2.3-4.7); Potassium 4.8 mmol/L (3.5-5.1); Sodium 131 mmol/L (136-145)
[2024-03-12] MEDS: Metoprolol Tartrate 25 MG TAB PO SCH (09:17)
[2024-03-12] MEDS: Apixaban 2.5 MG TAB PO SCH (09:17)
[2024-03-12] MEDS: Amiodarone 200 MG TAB PO SCH (21:10)
[2024-03-13 04:30] LABS: #Basophils Less than 0.03 10x3/uL (0.0-0.2); #Eosinphils Less than 0.03 10x3/uL (0.0-0.7); %Basophils 0.1 % (0.0-1.0); %Lymphocytes 13.6 % (21.0-51.0); %Monocytes 12.3 % (0.0-10.0); %Neutrophils 72.8 % (42.0-75.0); Hematocrit 34.5 % (42.0-52.0); Hemoglobin 11.6 g/dL (14.0-18.0); Mean Corpuscular HGB CONC 33.6 g/dL (32.0-36.0); Mean Corpuscular Hemoglobin 33.2 pg (27.0-31.0); Mean Corpuscular Volume 98.9 fL (78.0-98.0); Mean Platelet Volume 9.5 fL (7.4-10.4); Platelet Count 267 10x3/uL (130-400); RBC Distribution Width 14.2 % (11.5-14.5); Red Blood Cell (RBC) Count 3.49 mill/uL (4.70-6.10)
[2024-03-13 04:53] LABS: Anion Gap 14 mmol/L (10-20); BUN (Urea Nitrogen) 65 mg/dL (8.4-25.7); Calc. Creatinine Clearance 39 mL/min (70-130); Calcium 8.8 mg/dL (7.8-10.44); Carbon Dioxide 18 mmol/L (23-31); Chloride 107 mmol/L (98-107); Estimated GFR 40; Glucose 155 mg/dL (83-110); Magnesium 2.5 mg/dL (1.6-2.6); Potassium 4.8 mmol/L (3.5-5.1); Sodium 134 mmol/L (136-145)
[2024-03-13 04:57] LABS: Phosphorus 3.3 mg/dL (2.3-4.7)
[2024-03-13 13:11] LABS: Actual Bicarbonate (HCO3a) 20.9 mEq/L (22-28); Analyzer IN Cardio OR; Base Excess (BEa) -3.3 mEq/L (-2.0 to +3.0); CO2 Tension 34.6 mmHg (35.0-45.0); Carboxyhemoglobin (COHb) 0.3 gm% (0.0-3.0); Hematocrit-ABG 33 % (42.0-52.0); Hemoglobin (Hb) 11.1 g/dL (14.0-18.0); O2 Tension (PaO2), arterial 475.4 mmHg (> 60.0); Potassium - ABG Lab 3.67 mmol/L (3.70-5.30); pH, Arterial 7.399 (7.35-7.45)
[2024-03-13 13:11] LABS: Actual Bicarbonate (HCO3a) 21.9 mEq/L (22-28); Analyzer IN Cardio OR; Base Excess (BEa) -1.8 mEq/L (-2.0 to +3.0); CO2 Tension 33.8 mmHg (35.0-45.0); Calcium, Ionized (arterial) 1.16 mmol/L (1.12-1.30); Carboxyhemoglobin (COHb) 0.7 gm% (0.0-3.0); Hematocrit-ABG 36 % (42.0-52.0); Hemoglobin (Hb) 12.4 g/dL (14.0-18.0); O2 Tension (PaO2), arterial 471.4 mmHg (> 60.0); Potassium - ABG Lab 3.86 mmol/L (3.70-5.30); pH, Arterial 7.429 (7.35-7.45)
[2024-03-13 13:11] LABS: Actual Bicarbonate (HCO3a) 20.4 mEq/L (22-28); Analyzer IN Cardio OR; Base Excess (BEa) -2.1 mEq/L (-2.0 to +3.0); CO2 Tension 27.1 mmHg (35.0-45.0); Calcium, Ionized (arterial) 0.98 mmol/L (1.12-1.30); Carboxyhemoglobin (COHb) 0.4 gm% (0.0-3.0); Hematocrit-ABG 27 % (42.0-52.0); Hemoglobin (Hb) 9.3 g/dL (14.0-18.0); O2 Tension (PaO2), arterial 397.5 mmHg (> 60.0); Potassium - ABG Lab 3.98 mmol/L (3.70-5.30); pH, Arterial 7.495 (7.35-7.45)
[2024-03-13 13:12] LABS: Puncture Site Arterial Line
[2024-03-13 13:12] LABS: Actual Bicarbonate (HCO3a) 24.5 mEq/L (22-28); Analyzer IN Cardio OR; Base Excess (BEa) -0.5 mEq/L (-2.0 to +3.0); CO2 Tension 41.8 mmHg (35.0-45.0); Calcium, Ionized (arterial) 1.05 mmol/L (1.12-1.30); Carboxyhemoglobin (COHb) 0.4 gm% (0.0-3.0); Hematocrit-ABG 26 % (42.0-52.0); O2 Tension (PaO2), arterial 382.4 mmHg (> 60.0); Potassium - ABG Lab 4.66 mmol/L (3.70-5.30); pH, Arterial 7.386 (7.35-7.45)
[2024-03-13 13:12] LABS: Actual Bicarbonate (HCO3a) 22.6 mEq/L (22-28); Analyzer IN Cardio OR; Base Excess (BEa) -2.6 mEq/L (-2.0 to +3.0); Calcium, Ionized (arterial) 1.17 mmol/L (1.12-1.30); Carboxyhemoglobin (COHb) 0.4 gm% (0.0-3.0); Hematocrit-ABG 27 % (42.0-52.0); Hemoglobin (Hb) 9.2 g/dL (14.0-18.0); O2 Tension (PaO2), arterial 364.9 mmHg (> 60.0); Potassium - ABG Lab 4.43 mmol/L (3.70-5.30)
[2024-03-13 13:13] LABS: Puncture Site Arterial Line
[2024-03-13 13:13] LABS: Puncture Site Arterial Line
[2024-03-13 13:14] LABS: Puncture Site Arterial Line
[2024-03-13 13:14] LABS: Puncture Site Arterial Line
[2024-03-13] MEDS ORDERED: PROPOFOL 20 ML ONE (15:05)
[2024-03-13] MEDS ORDERED: PHENYLEPHRINE-NS 100 MCG/ML 10 ML SYRINGE ONE (15:05)
[2024-03-13 15:10] VITALS: BMI 31.2
[2024-03-13] MEDS ORDERED: GLYCOPYRROLATE/PF 0.2 MG/ML VIAL ONE (15:43)
[2024-03-13] MEDS ORDERED: ePHEDrine Sulfate 50 MG/10 ML VIAL ONE (15:45)
[2024-03-14 05:11] LABS: #Basophils Less than 0.03 10x3/uL (0.0-0.2); %Basophils 0.2 % (0.0-1.0); %Eosinophils 0.4 % (0.0-10.0); %Lymphocytes 16.3 % (21.0-51.0); %Monocytes 12.6 % (0.0-10.0); %Neutrophils 69.3 % (42.0-75.0); Hematocrit 32.6 % (42.0-52.0); Hemoglobin 10.6 g/dL (14.0-18.0); Mean Corpuscular HGB CONC 32.5 g/dL (32.0-36.0); Mean Corpuscular Hemoglobin 32.3 pg (27.0-31.0); Mean Corpuscular Volume 99.4 fL (78.0-98.0); Mean Platelet Volume 9.5 fL (7.4-10.4); Platelet Count 274 10x3/uL (130-400); RBC Distribution Width 14.9 % (11.5-14.5); Red Blood Cell (RBC) Count 3.28 mill/uL (4.70-6.10)
[2024-03-14 05:30] LABS: Anion Gap 14 mmol/L (10-20); BUN (Urea Nitrogen) 59 mg/dL (8.4-25.7); Calc. Creatinine Clearance 43 mL/min (70-130); Calcium 8.4 mg/dL (7.8-10.44); Carbon Dioxide 19 mmol/L (23-31); Chloride 107 mmol/L (98-107); Estimated GFR 45; Glucose 126 mg/dL (83-110); Magnesium 2.5 mg/dL (1.6-2.6); Phosphorus 3.5 mg/dL (2.3-4.7); Potassium 4.9 mmol/L (3.5-5.1); Sodium 135 mmol/L (136-145)
[2024-03-14] MEDS: Amiodarone 200 MG TAB PO SCH (08:50)
[2024-03-14 11:45] VITALS: TEMP 97.2
[2024-03-14 14:34] VITALS: BP 123/58
== END 2024-03-14 14:02 | disposition home or self-care (01) | DRG 235 ==
LOC: SURG A 03-06 06:08 → CCU 03-06 12:07 → 2NO 03-08 17:13
PROVIDERS: ADMIT Student in an Organized Health Care Education/Training Program; ATTEND Internal Medicine
PROC: 02100Z9 Bypass Coronary Artery, One Artery from Left Internal Mammary, Open Approach (ICD-10-PCS; principal; 2024-03-06)
PROC: 021009W Bypass Coronary Artery, One Artery from Aorta with Autologous Venous Tissue, Open Approach (ICD-10-PCS; 2024-03-06)
PROC: 06BQ0ZZ Excision of Left Saphenous Vein, Open Approach (ICD-10-PCS; 2024-03-06)
PROC: 5A1221Z Performance of Cardiac Output, Continuous (ICD-10-PCS; 2024-03-06)
PROC: 02L70CK Occlusion of Left Atrial Appendage with Extraluminal Device, Open Approach (ICD-10-PCS; 2024-03-06)
PROC: 4A133R1 Monitoring of Arterial Saturation, Peripheral, Percutaneous Approach (ICD-10-PCS; 2024-03-06)
PROC: 3E033XZ Introduction of Vasopressor into Peripheral Vein, Percutaneous Approach (ICD-10-PCS; 2024-03-06)
PROC: 30233J1 Transfusion of Nonautologous Serum Albumin into Peripheral Vein, Percutaneous Approach (ICD-10-PCS; 2024-03-06)
PROC: 5A2204Z Restoration of Cardiac Rhythm, Single (ICD-10-PCS; 2024-03-13)
PROC: B245ZZ4 Ultrasonography of Left Heart, Transesophageal (ICD-10-PCS; 2024-03-13)
DX: I25.10 Atherosclerotic heart disease of native coronary artery without angina pectoris (principal); J95.821 Acute postprocedural respiratory failure; I50.42 Chronic combined systolic (congestive) and diastolic (congestive) heart failure; D62 Acute posthemorrhagic anemia; I11.0 Hypertensive heart disease with heart failure; E11.9 Type 2 diabetes mellitus without complications; Z79.82 Long term (current) use of aspirin; Z79.899 Other long term (current) drug therapy; E03.9 Hypothyroidism, unspecified; Z95.1 Presence of aortocoronary bypass graft; I25.5 Ischemic cardiomyopathy; E78.5 Hyperlipidemia, unspecified; K59.00 Constipation, unspecified; I48.91 Unspecified atrial fibrillation
CPT/HCPCS: 36415; 36416; 71045; 80048; 80076; 82805; 83735; 84100; 85025; 85610; 85730; 86850; 86900; 86901; 92960; 93005; 93010; 93306; 93312; 93798; 94002; 94640; A4311; A4648; C1713; C1751; J0171; J0282; J0665; J1642; J1644; J1815; J2001; J2150; J2250; J2260; J2440; J2704; J2720; J3010; J3370; J3475; J3480; J3490; J7030; J7070; J7620; P9045; S0017